=== PATIENT | female | born 1955 | race African-American/Black ===

== ENCOUNTER → 2017-02-08 | Outpatient (CLI) | payer OTHER | LOC: RAD 11:25 | PROVIDERS: ATTEND Internal Medicine | DX: M54.5 Low back pain (principal) ==

== ENCOUNTER → 2017-02-10 | Outpatient (CLI) | payer OTHER ==
--- NOTE | 2017-02-11 08:48 | CT ---
HISTORY: Low back pain status post fall. Study: CT lumbar spine without contrast Comparison: None. Technique: Multiple axial images of the lumbar spine were obtained from the thoracolumbar junction t o the sacrum without the administration of IV contrast. Sagittal and coronal reformats were performe d and reviewed. Dose reduction techniques including Automated Exposure Control (AEC) and adjustment of mA and kV were utilized. Findings: No acute fracture or listhesis. Moderate to severe degenerative changes at L4 through S1 with associa saurav severe disc height loss, endplate sclerosis, subchondral cystic changes, and vacuum disc phenomen on. Remaining disc levels are unremarkable. Broad-based disc bulges are also seen at L4 through S1 ca using moderate to severe neural foraminal narrowing and spinal canal stenosis to 7 mm. Nonspecific 7 mm sclerotic focus at the superior endplate of L4. Scattered vascular calcifications. Diverticulosis without evidence of diverticulitis. Remaining soft tissue structures appear normal. IMPRESSION: 1. No acute osseous abnormality. 2. Other chronic findings as above. Reported By:
== END ==
LOC: RAD 14:26
PROVIDERS: ATTEND Internal Medicine
DX: M54.5 Low back pain (principal)
CPT/HCPCS: 72131